=== PATIENT | male | born 1965 | race Caucasian/White ===

== ENCOUNTER 2016-11-02 14:47 | Emergency (ER) | payer OTHER ==
[~2016-11-02] VITALS: Ht 175.3 cm; Wt 143.3 kg
[~2016-11-02 14:47] MED LIST: ASPERDRINK81 MG PO; ASPIRIN325 MG PO; AUGMENTIN875 MG PO; CHLORTHALIDONE25 MG PO; CIPRO500 MG PO; COLACE100 MG PO; COMBIVENT RESPIM4 GM IH; DOXYCYCLINE HY100 MG PO; FLAGYL500 MG PO; FLEXERIL10 MG PO; HYCODAN SYRUP480 ML PO; HYDROCODON-ACE1 EAC7 PO; LIPITOR80 MG PO; MOTRIN600 MG PO; PERCOCET 5/31 TABLET PO; PREDNISONE50 MG PO; TOPROL XL25 MG PO; TRAMADOL HCL50 MG PO; ULTRAM50 MG PO; ZOFRAN4 MG PO
[2016-11-02] MEDS ORDERED: ULTRAM50 MG PO (17:26)
[2016-11-02 18:41] VITALS: BP 146/84
== END 2016-11-02 18:42 | disposition home or self-care (01) ==
LOC: EME 14:47 → TRA 14:47
DX: S40.011A Contusion of right shoulder, initial encounter (principal); S70.01XA Contusion of right hip, initial encounter; S00.31XA Abrasion of nose, initial encounter; S00.01XA Abrasion of scalp, initial encounter; W00.0XXA Fall on same level due to ice and snow, initial encounter; E78.5 Hyperlipidemia, unspecified; I10 Essential (primary) hypertension; Z98.61 Coronary angioplasty status
CPT/HCPCS: 70450; 72125; 73030; 73502; 99281; 99284

== ENCOUNTER 2016-12-01 11:21 | Day surgery (SDC) | payer OTHER ==
[~2016-12-01] VITALS: Ht 177.8 cm; Wt 142.9 kg
[~2016-12-01 11:21] MED LIST changes: +DILAUDID2 MG PO; +FLOMAX0.4 MG PO; +LITE COAT ASPI325 M1 PO; +PROZAC10 MG PO; +ROBAXIN500 MG PO; +TOPROL XL50 MG PO; +VITAMIN D-32000 UNI2 PO; +WELLBUTRIN SR150 MG PO; +ZESTRIL20 MG PO
[2016-12-01 11:39] VITALS: BP 136/89
[2016-12-01 11:58] VITALS: BP 136/89
[2016-12-01 17:20] VITALS: BP 111/67
[2016-12-01 18:00] VITALS: BP 132/82
== END 2016-12-01 18:18 | disposition home or self-care (01) ==
LOC: SDC 11:21
DX: M75.121 Complete rotator cuff tear or rupture of right shoulder, not specified as traumatic (principal); S46.111A Strain of muscle, fascia and tendon of long head of biceps, right arm, initial encounter; M25.811 Other specified joint disorders, right shoulder; W00.9XXA Unspecified fall due to ice and snow, initial encounter; G47.30 Sleep apnea, unspecified; Z79.01 Long term (current) use of anticoagulants; I10 Essential (primary) hypertension; F32.9 Major depressive disorder, single episode, unspecified; Z79.82 Long term (current) use of aspirin; Z98.61 Coronary angioplasty status; Z82.49 Family history of ischemic heart disease and other diseases of the circulatory system; Z68.42 Body mass index [BMI] 45.0-49.9, adult
CPT/HCPCS: C1713; J0171; J0330; J0690; J1100; J2250; J2405; J2795; J3010

== ENCOUNTER 2017-09-15 00:13 | Inpatient (IN) | payer OTHER ==
[~2017-09-15] VITALS: Ht 177.8 cm; Wt 145.3 kg
[2017-09-15 00:56] LABS: HEMATOCRIT 47.4 % (38.0-50.0); HEMOGLOBIN 15.8 G/DL (12.5-16.6); MCH 27.8 PG (29.0-34.0); MCHC 33.3 G/DL (30.0-36.0); MCV 83.5 FL (86-99); PLATELET COUNT 266 K/uL (156-360); RBC DIS.WIDTH-CV 15.2 % (11.8-14.6); RBC DIS.WIDTH-SD 46.2 % (39-53); RED BLOOD COUNT 5.68 M/uL (4.00-5.50); WHITE BLOOD COUNT 11.9 K/uL (4.1-10.2)
[2017-09-15 01:07] LABS: PTT 29.8 SEC (25-37)
[2017-09-15 01:19] LABS: CHLORIDE 102 mEq/L (99-109); POTASSIUM 3.7 mEq/L (3.7-5.4); SODIUM 139 mEq/L (136-147)
[2017-09-15 01:21] LABS: GLUCOSE 103 mg/dL (70-99)
[2017-09-15 01:25] LABS: CREATININE 1.4 mg/dL (0.6-1.3); GFR ESTIMATE (CALCULATED) 56 mL/min/ (58.99-99999)
[2017-09-15 01:26] LABS: UREA NITROGEN (BUN) 29 mg/dL (9-23)
[2017-09-15 01:28] LABS: TROP-I INTERPRETATION NEGATIVE; TROPONIN-I 0.03 ng/mL (0.0-0.30)
[2017-09-15 04:10] LABS: TROP-I INTERPRETATION NEGATIVE; TROPONIN-I 0.03 ng/mL (0.0-0.30)
[2017-09-15 06:15] VITALS: BP 129/94
[2017-09-15 08:00] VITALS: BP 115/70
[2017-09-15 09:14] LABS: THYROTROPIN (TSH) 2.9 MIU/L (0.4-5.5)
[2017-09-15 12:00] VITALS: BP 155/84
[2017-09-15 13:10] LABS: TROP-I INTERPRETATION NEGATIVE; TROPONIN-I 0.02 ng/mL (0.0-0.30)
[2017-09-15 13:17] LABS: INTER. NORMALIZED RATIO 1.1
[2017-09-15 13:27] LABS: PTT 54.7 SEC (25-37)
[2017-09-15] MEDS ORDERED: ASPIR 8181 M1 PO (15:50)
[2017-09-15 17:46] LABS: APPEARANCE CLEAR ((CLEAR)); BILIRUBIN NEGATIVE; BLOOD NEGATIVE; COLOR YELLOW ((YELLOW)); GLUCOSE (STRIP) NEGATIVE; KETONES NEGATIVE; LEUKOCYTES NEGATIVE; NITRITE NEGATIVE; PROTEIN (STRIP) NEGATIVE; SPECIFIC GRAVITY 1.024 (1.000-1.030); UCUL ADDED? NO; UROBILINOGEN 0.2 MG/DL (0.2-1.0)
[2017-09-15 17:55] VITALS: BP 135/75
[2017-09-15 19:04] VITALS: BP 125/72
[2017-09-15] MEDS ORDERED: MELOXICAM15 MG PO (19:04)
[2017-09-15 23:00] VITALS: BP 129/69
[2017-09-16 04:30] VITALS: BP 131/74
[2017-09-16 06:38] LABS: HEMATOCRIT 49.6 % (38.0-50.0); HEMOGLOBIN 15.7 G/DL (12.5-16.6); MCH 27.2 PG (29.0-34.0); MCHC 31.7 G/DL (30.0-36.0); PLATELET COUNT 216 K/uL (156-360); RBC DIS.WIDTH-CV 15.8 % (11.8-14.6); RBC DIS.WIDTH-SD 48.4 % (39-53); RED BLOOD COUNT 5.77 M/uL (4.00-5.50); WHITE BLOOD COUNT 10.5 K/uL (4.1-10.2)
[2017-09-16 06:55] LABS: ALKALINE PHOSPHATASE 57 IU/L (3-129); ALT (GPT) 33 IU/L (3-49); AST (GOT) 18 IU/L (2-34); CHLORIDE 100 MEQ/L (99-109); CREATININE 1.1 MG/DL (0.6-1.3); GFR ESTIMATE (CALCULATED) > 59 mL/min/ (58.99-99999); GLUCOSE 87 mg/dL (70-99); HDL CHOLESTEROL 30 MG/DL (Desirable>=40); LDL CHOLESTEROL 93 mg/dL (Desirable<100); MAGNESIUM 1.8 mg/dl (1.3-2.7); NON-HDL CHOLESTEROL 120 mg/dL (Desirable<160); POTASSIUM 3.8 MEQ/L (3.7-5.4); SODIUM 138 MEQ/L (136-147); TOTAL BILIRUBIN 0.7 MG/DL (0.0-1.0); TOTAL CHOLESTEROL 150 mg/dL (Desirable<200); TOTAL PROTEIN 6.5 G/DL (6.4-8.3); TRIGLYCERIDES 135 MG/DL (Normal: <150); UREA NITROGEN (BUN) 17 mg/dL (9-23)
[2017-09-16 08:00] VITALS: BP 135/87
[2017-09-16 12:00] VITALS: BP 95/55
[2017-09-16 14:47] VITALS: BP 113/59
[2017-09-16 19:20] VITALS: BP 94/50
[2017-09-16 23:17] VITALS: BP 107/71; BP 137/71
[2017-09-17] VITALS (11 sets, daily range): BP systolic 108–149; BP diastolic 64–86
[2017-09-17 06:02] LABS: HEMATOCRIT 47.7 % (38.0-50.0); HEMOGLOBIN 15.5 G/DL (12.5-16.6); MCH 27.5 PG (29.0-34.0); MCHC 32.5 G/DL (30.0-36.0); MCV 84.7 FL (86-99); PLATELET COUNT 229 K/uL (156-360); RBC DIS.WIDTH-CV 15.6 % (11.8-14.6); RED BLOOD COUNT 5.63 M/uL (4.00-5.50); WHITE BLOOD COUNT 9.1 K/uL (4.1-10.2)
[2017-09-18 03:10] VITALS: BP 124/77
[2017-09-18 05:57] LABS: HEMATOCRIT 47.4 % (38.0-50.0); HEMOGLOBIN 15.1 G/DL (12.5-16.6); MCH 27.4 PG (29.0-34.0); MCHC 31.9 G/DL (30.0-36.0); PLATELET COUNT 225 K/uL (156-360); RBC DIS.WIDTH-CV 15.5 % (11.8-14.6); RBC DIS.WIDTH-SD 48.4 % (39-53); RED BLOOD COUNT 5.51 M/uL (4.00-5.50); WHITE BLOOD COUNT 11.1 K/uL (4.1-10.2)
[2017-09-18 06:09] LABS: CHLORIDE 100 MEQ/L (99-109); CREATININE 1.3 MG/DL (0.6-1.3); GFR ESTIMATE (CALCULATED) > 59 mL/min/ (58.99-99999); GLUCOSE 95 mg/dL (70-99); POTASSIUM 3.8 MEQ/L (3.7-5.4); SODIUM 137 MEQ/L (136-147); UREA NITROGEN (BUN) 20 mg/dL (9-23)
[2017-09-18 08:10] VITALS: BP 124/79
[2017-09-18 11:49] VITALS: BP 115/63
[2017-09-18] MEDS ORDERED: METOPROLOL SUCC50 MG PO (12:29)
[2017-09-18] MEDS ORDERED: XARELTO20 MG PO (12:29)
[2017-09-18] MEDS ORDERED: CARDIZEM CD,CA180 MG PO (12:29)
[2017-09-18] MEDS ORDERED: MULTAQ400 MG PO (12:29)
== END 2017-09-18 15:10 | disposition home or self-care (01) | DRG 309 ==
LOC: EME 00:13 → 4EAST 04:50 → EDOF 04:50 → ENRESERV 04:52 → 4EAST 06:19
PROVIDERS: Emergency Medicine; Hospitalist; Internal Medicine; Physician Assistant
DX: I48.92 Unspecified atrial flutter (principal); I10 Essential (primary) hypertension; I25.10 Atherosclerotic heart disease of native coronary artery without angina pectoris; N40.0 Benign prostatic hyperplasia without lower urinary tract symptoms; F32.9 Major depressive disorder, single episode, unspecified; G47.33 Obstructive sleep apnea (adult) (pediatric); E66.01 Morbid (severe) obesity due to excess calories; E78.2 Mixed hyperlipidemia; I48.91 Unspecified atrial fibrillation; F39 Unspecified mood [affective] disorder; Z79.899 Other long term (current) drug therapy; Z82.5 Family history of asthma and other chronic lower respiratory diseases; Z80.0 Family history of malignant neoplasm of digestive organs; Z82.49 Family history of ischemic heart disease and other diseases of the circulatory system; Z79.82 Long term (current) use of aspirin; Z68.42 Body mass index [BMI] 45.0-49.9, adult; Z79.01 Long term (current) use of anticoagulants; Z95.5 Presence of coronary angioplasty implant and graft
CPT/HCPCS: 71046; 71275; 80048; 80053; 80061; 81003; 83735; 83880; 84439; 84443; 84484; 85027; 85610; 85730; 93005; 93970; 99281; 99285; J1160; J7030; J7040; J7050